=== PATIENT | male | born 1960 | race African-American/Black ===

== ENCOUNTER 2024-04-14 18:10 | Emergency (ER) | payer OTHER ==
[2024-04-14 19:57] LABS: Bilirubin Negative (Negative); Blood, Urine Trace (Negative); Clarity Clear (Clear); Glucose, Urine (Dipstick) Negative (Negative); Ketone, Urine Negative (Negative); Leukocyte Negative (Negative); Nitrite Negative (Negative); Protein, Urine (Dipstick) > or equal to 300 mg/dL (Neg-Trace)
[2024-04-14 19:59] LABS: #Basophils 0.1 thou/uL (0.0-0.2); #Lymphocytes 3.1 thou/uL (1.20-3.40); #Monocytes 0.9 thou/uL (0.11-0.59); #Neutrophils 4.7 thou/uL (1.40-6.50); %Basophils 1.2 % (0.0-1.0); %Eosinophils 0.4 % (0.0-10.0); %Lymphocytes 35.1 % (21.0-51.0); %Monocytes 10.5 % (0.0-10.0); %Neutrophils 52.8 % (42.0-75.0); Hematocrit 46.2 % (42.0-52.0); Hemoglobin 14.8 g/dL (14.0-18.0); Mean Corpuscular HGB CONC 32.1 g/dL (32.0-36.0); Mean Corpuscular Volume 90.3 fl (78.0-98.0); Mean Platelet Volume 9.6 fL (7.4-10.4); Platelet Count 234 10x3/uL (130-400); RBC Distribution Width 13.5 % (11.5-14.5); Red Blood Cell (RBC) Count 5.12 mill/uL (4.70-6.10); White Blood Cell (WBC) Count 8.9 10x3/uL (4.8-10.8)
[2024-04-14 20:38] LABS: Bacteria/HPF None Seen HPF (None Seen); CAUTI Indications for Culture Fever or rigors; RBC/HPF 0-3 HPF (0-3); Squamous Epithelial 0-3 HPF (0-3); Transitional Epithelial 0-3 HPF (None Seen)
[2024-04-14 20:40] LABS: Urine Culture Reflex No No
[2024-04-14 20:59] LABS: ALT (SGPT) 155 U/L (8-55); AST (SGOT) 112 U/L (5-34); Albumin 2.4 g/dL (3.4-4.8); Alkaline Phosphatase 210 U/L (40-110); Anion Gap 18 mmol/L (10-20); BUN (Urea Nitrogen) 36 mg/dL (8.4-25.7); Bilirubin, Total 1.2 mg/dL (0.2-1.2); Calc. Creatinine Clearance 0 mL/min (70-130); Calcium 8.4 mg/dL (7.8-10.44); Carbon Dioxide 22 mmol/L (23-31); Chloride 102 mmol/L (98-107); Estimated GFR 39; Globulin 3.6 g/dL (2.4-3.5); Glucose 86 mg/dL (80-115); Lipase 9 U/L (8-78); Sodium 137 mmol/L (136-145)
[2024-04-14 21:06] LABS: Troponin I 0.164 ng/mL (< 0.028)
[2024-04-14 21:14] LABS: Base Excess-Venous -0.7 mmol/L (-2.0 to 3.0); Bicarbonate (HCO3v) 24.4 mmol/L (22.0-28.0); CO2 Tension (PvCO2) 40.9 mmHg (42.0-51.0); Calcium, Ionized 0.97 mmol/L (1.15-1.33); Chloride 104 mmol/L (98-107); Hemoglobin - Calc 17.2 g/dL (14.0-18.0); Potassium 4.9 mmol/L (3.5-5.1); Sodium 139 mmol/L (138-145); T. Carbon Dioxide 25.6 mmol/L (22.0-28.0); vO2 Saturation-calc 95.7 % (60.0-85.0)
[2024-04-14] MEDS ORDERED: Furosemide 40 MG (4 mL) VIAL ONE (21:16)
[2024-04-14] MEDS ORDERED: Aspirin Chewable 81 MG TAB ONE (21:16)
[2024-04-14] MEDS ORDERED: Nitroglycerin 2% Ointment 1 INCH/1 GM Packet ONE (21:16)
[2024-04-14] MEDS ORDERED: Enoxaparin 100 MG (1 mL) SYRINGE ONE (22:35)
[2024-04-15 00:06] LABS: Troponin I 0.193 ng/mL (< 0.028)
== END 2024-04-15 00:36 | disposition short-term general hospital (02) ==
LOC: NAV ERS 18:10
DX: I11.0 Hypertensive heart disease with heart failure (principal); I50.9 Heart failure, unspecified; N28.9 Disorder of kidney and ureter, unspecified; E11.9 Type 2 diabetes mellitus without complications; R79.89 Other specified abnormal findings of blood chemistry
CPT/HCPCS: 36415; 71045; 80053; 81001; 82010; 82330; 82435; 82803; 83690; 83880; 84132; 84295; 84484; 85014; 85025; 93005; 96372; 96374; J1650; J1940